=== PATIENT | female | born 1970 | race Hispanic/Latino ===

== ENCOUNTER 2018-01-07 10:30 | Outpatient (AMBR) | payer MEDICARE, MEDICAID, SELFPAY ==
--- NOTE | 2017-12-21 10:05 | PT.OIERPT ---
PT OP Initial Eval Patient Information Visit Reasons: hip pain Medical Diagnosis: M54.5; M25.552 Treatment Dx #1: Back Pain Treatment Dx #2: Left Hip Pain Start of Care: 12/21/17 Date of Onset: Mar 2017 Initial Assessment Subjective Pt is a 47 y/o female c/o back and L hip pain (8/10) started several months ago after her hip replacement. Pt now notice tingling down both legs as well as weakness L>R. Pt's recent MRI found L5-S1 central disc bulge 3mm. Pt currently has difficulty with walking, standing, cooking, cleaning, stairs, recreational activities, and self care. Objective L/S AROM: all motions are WFL with end range pain in flexion Left Hip PROM: all motions are WFL Left Hip AROM Flexion: 90 deg Abduction: 45 deg Hip Extension: 10 deg Left Hip MMTs: grossly 3/5 LEFS score: 98% disabled Assessment Pt demonstrate back and left hip pain leading to decline function and difficulty with functional tasks. Pt will attempt physical therapy if pain persist Pt will be refer back to PCP. 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 1) Increase left hip MMTs to 4-/5 and LEFS score to 50 % in 6 wks to be able to walk more than 2 hrs 2) Increase L/S AROM WNL with less pain to be able to perform chores 3) Increase left hip AROM WNL in 6 wks to be able to perform self care activities 4) Increase core strength WFL in 6 wks to be able to perform lifting activities 5) Indep with HEP Treatment Plan 1) Manual Therapy 2) Therapeutic Activities 3) Therapeutic Exercises 4) Modalities (ice, heat) 5) Balance Training Frequency and Duration 2 x wk for 6 wks Certification Dates: 12/21/17 to 03/23/18 Office Procedures PT Outpatient G-Codes Date of Service PT Date of Service: 12/21/17 G-Codes Walking & Moving Around Mobility Current Status G-Code: G8978: CM 80-100% Mobility Status G-Code: G8979: CK 40-60% PT Procedures PT Date of Service: 12/21/17 OP PT Eval Mod Complex 30 minutes: Yes
--- NOTE | 2017-12-24 09:53 | PT.ODAYNRPT ---
PT Outpatient Daily Note Date of Service: December 24, 2017 OP Daily Note Visit Reasons: hip pain Outpatient Physical Therapy Treatment Date: 12/24/17 Subjective: Pt's hip and back feels the same. Objective: Please see flow chart for list of ther ex performed Assessment: heat help pt perform her supine exercises. Pt require frequent cues to correct her SLS exercises as well as keeping track of reps performed Plan: Continue with PT Length of Time (minutes) of Treatment: 30 Minutes Office Procedures PT Outpatient G-Codes Date of Service PT Date of Service: 12/21/17 G-Codes Walking & Moving Around Mobility Current Status G-Code: G8978: CM 80-100% Mobility Status G-Code: G8979: CK 40-60% PT Procedures PT Date of Service: 12/21/17 OP PT Eval Mod Complex 30 minutes: Yes PT Procedures PT Date of Service: 12/24/17 Therapeutic Exercise 30 minutes: Yes
--- NOTE | 2017-12-26 09:18 | PT.ODAYNRPT ---
PT Outpatient Daily Note Date of Service: December 26, 2017 OP Daily Note Visit Reasons: hip pain Outpatient Physical Therapy Treatment Date: 12/26/17 Subjective: Pt feels okay after last treatment session. Pt wasn't too sore from therapy session. Pt still has back and hip pain this AM Objective: Please see flow chart for list of ther ex performed Assessment: tolerate exercises performed Plan: Continue with PT Length of Time (minutes) of Treatment: 30 Minutes Office Procedures PT Outpatient G-Codes Date of Service PT Date of Service: 12/21/17 G-Codes Walking & Moving Around Mobility Current Status G-Code: G8978: CM 80-100% Mobility Status G-Code: G8979: CK 40-60% PT Procedures PT Date of Service: 12/21/17 OP PT Eval Mod Complex 30 minutes: Yes PT Procedures PT Date of Service: 12/24/17 Therapeutic Exercise 30 minutes: Yes PT Procedures PT Date of Service: 12/26/17 Therapeutic Exercise 30 minutes: Yes
--- NOTE | 2018-01-02 09:32 | PT.ODAYNRPT ---
PT Outpatient Daily Note Date of Service: January 02, 2018 OP Daily Note Visit Reasons: hip pain Outpatient Physical Therapy Treatment Date: 01/02/18 Subjective: Pt sore after last treatment session. Objective: Please see flow chart for list of ther ex performed Assessment: tolerate exercises with minimal pain Plan: Continue with PT Length of Time (minutes) of Treatment: 30 Minutes Office Procedures PT Outpatient G-Codes Date of Service PT Date of Service: 12/21/17 G-Codes Walking & Moving Around Mobility Current Status G-Code: G8978: CM 80-100% Mobility Status G-Code: G8979: CK 40-60% PT Procedures PT Date of Service: 12/21/17 OP PT Eval Mod Complex 30 minutes: Yes PT Procedures PT Date of Service: 12/24/17 Therapeutic Exercise 30 minutes: Yes PT Procedures PT Date of Service: 12/26/17 Therapeutic Exercise 30 minutes: Yes PT Procedures PT Date of Service: 01/02/18 Therapeutic Exercise 30 minutes: Yes
--- NOTE | 2018-01-04 09:44 | PT.ODAYNRPT ---
PT Outpatient Daily Note Date of Service: January 04, 2018 OP Daily Note Visit Reasons: hip pain Outpatient Physical Therapy Treatment Date: 01/04/18 Subjective: Pt's back and hip is feeling a little better. Pt will like to continue PT Objective: Please see flow chart for list of ther ex performed Assessment: improved endurance able to perform exercises longer with less rest break. Plan: Continue with PT Office Procedures PT Outpatient G-Codes Date of Service PT Date of Service: 12/21/17 G-Codes Walking & Moving Around Mobility Current Status G-Code: G8978: CM 80-100% Mobility Status G-Code: G8979: CK 40-60% PT Procedures PT Date of Service: 12/21/17 OP PT Eval Mod Complex 30 minutes: Yes PT Procedures PT Date of Service: 12/24/17 Therapeutic Exercise 30 minutes: Yes PT Procedures PT Date of Service: 12/26/17 Therapeutic Exercise 30 minutes: Yes PT Procedures PT Date of Service: 01/04/18 Therapeutic Exercise 30 minutes: Yes PT Procedures PT Date of Service: 01/02/18 Therapeutic Exercise 30 minutes: Yes
--- NOTE | 2018-01-07 16:21 | PT.ODAYNRPT ---
PT Outpatient Daily Note Date of Service: January 07, 2018 OP Daily Note Visit Reasons: hip pain Outpatient Physical Therapy Treatment Date: 01/07/18 Subjective: pt had pain upon visit of her hip but did not say much throughout treatment. Objective: see flow sheet. Assessment: observed pt excessive side bend to the L as she lifts the RLE during tick tocks exercise. pt demonstrates antalgic gait pattern. as she steps up onto the step she needs t use both hands for support indicating weakness. Plan: continue POC per PT. Length of Time (minutes) of Treatment: 30 Minutes Office Procedures PT Outpatient G-Codes Date of Service PT Date of Service: 12/21/17 G-Codes Walking & Moving Around Mobility Current Status G-Code: G8978: CM 80-100% Mobility Status G-Code: G8979: CK 40-60% PT Procedures PT Date of Service: 12/21/17 OP PT Eval Mod Complex 30 minutes: Yes PT Procedures PT Date of Service: 12/24/17 Therapeutic Exercise 30 minutes: Yes PT Procedures PT Date of Service: 12/26/17 Therapeutic Exercise 30 minutes: Yes PT Procedures PT Date of Service: 01/04/18 Therapeutic Exercise 30 minutes: Yes PT Procedures PT Date of Service: 01/07/18 Therapeutic Exercise 30 minutes: Yes PT Procedures PT Date of Service: 01/02/18 Therapeutic Exercise 30 minutes: Yes
== END 2018-01-16 23:59 | disposition home or self-care (01) ==
PROVIDERS: PCP Physician Assistant; Referring Provider Physician Assistant; Visit Provider Physician Assistant
DX: M54.5 Low back pain (principal); M25.552 Pain in left hip; Z96.642 Presence of left artificial hip joint; R20.2 Paresthesia of skin; R53.1 Weakness; R26.2 Difficulty in walking, not elsewhere classified; I10 Essential (primary) hypertension
CPT/HCPCS: 97110; 97162; G8978; G8979

== ENCOUNTER 2018-07-26 11:24 | Outpatient (AMBR) | payer MEDICARE, MEDICAID, SELFPAY ==
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
--- NOTE | 2018-07-12 15:31 | PT.ODAYNRPT ---
PT Outpatient Daily Note Date of Service: July 12, 2018 OP Daily Note Visit Reasons: back pain Outpatient Physical Therapy Treatment Date: 07/12/18 Subjective: Pt's back and legs feel heavy. Pt mention that she still has difficulty with lifting object due to pain and weakness Objective: Please see flow chart for list of ther ex performed Assessment: tolerate exercises with minimal pain Plan: Continue with PT Length of Time (minutes) of Treatment: 30 Minutes Office Procedures PT Procedures PT Date of Service: 07/12/18 Therapeutic Exercise 30 minutes: Yes PT Procedures PT Date of Service: 07/08/18 OP PT Eval Mod Complex 30 minutes: Yes
--- NOTE | 2018-07-18 12:06 | PT.ODAYNRPT ---
PT Outpatient Daily Note Date of Service: July 18, 2018 OP Daily Note Visit Reasons: back pain Outpatient Physical Therapy Treatment Date: 07/18/18 Subjective: Pt notice that her back pain is less but is sore from therapy session Objective: Please see flow chart for list of ther ex performed Assessment: tolerate exercises with minimal pain Plan: Continue with PT Length of Time (minutes) of Treatment: 30 Minutes Office Procedures PT Procedures PT Date of Service: 07/12/18 Therapeutic Exercise 30 minutes: Yes PT Procedures PT Date of Service: 07/18/18 Therapeutic Exercise 30 minutes: Yes PT Procedures PT Date of Service: 07/08/18 OP PT Eval Mod Complex 30 minutes: Yes
--- NOTE | 2018-07-26 12:05 | PT.ODAYNRPT ---
PT Outpatient Daily Note Date of Service: July 26, 2018 OP Daily Note Visit Reasons: back pain Outpatient Physical Therapy Treatment Date: 07/26/18 Subjective: Pt mention that back is a little better. Pt still has pain but notice her back not fatigue as much Objective: Please see flow chart for list of ther ex performed Assessment: tolerate exercises with minimal pain; added more core exercises with good tolerance Plan: Continue with PT Length of Time (minutes) of Treatment: 30 Minutes Office Procedures PT Procedures PT Date of Service: 07/12/18 Therapeutic Exercise 30 minutes: Yes PT Procedures PT Date of Service: 07/18/18 Therapeutic Exercise 30 minutes: Yes PT Procedures PT Date of Service: 07/08/18 OP PT Eval Mod Complex 30 minutes: Yes PT Procedures PT Date of Service: 07/26/18 Therapeutic Exercise 30 minutes: Yes
== END 2018-07-26 23:59 | disposition home or self-care (01) ==
PROVIDERS: PCP Physician Assistant; Referring Provider Physician Assistant; Visit Provider Physician Assistant
DX: M54.9 Dorsalgia, unspecified (principal); R53.1 Weakness; Z96.642 Presence of left artificial hip joint; R26.2 Difficulty in walking, not elsewhere classified; M43.26 Fusion of spine, lumbar region; I10 Essential (primary) hypertension
CPT/HCPCS: 97110; 97162